=== PATIENT | male | born 1950 | race Caucasian/White ===

== ENCOUNTER 2020-01-23 12:27 | Inpatient (IN) ==
[2020-01-23] MEDS ORDERED: CeFAZolin Syr 3,000MG/30 ML 3,000 MG/30 ML SYRINGE IVPB ONE (12:48)
[2020-01-23] MEDS ORDERED: Ringers Solution, Lactated 1,000 ML IVC SCH ×2 (13:00→18:42)
[2020-01-23] MEDS ORDERED: Ethanol\\Acetic Acid\\Na Ace\\Ben 1,000 ML IRRIG.SOLN IR ONE (14:22)
[2020-01-23] MEDS ORDERED: *HR* Propofol 200 MG/20 ML VIAL IVP ONE (14:22)
[2020-01-23] MEDS ORDERED: Ondansetron 4 MG/2 ML VIAL ONE (14:22)
[2020-01-23] MEDS ORDERED: Lidocaine -MPF 2% 2 ML VIAL ONE (14:22)
[2020-01-23] MEDS ORDERED: Dexamethasone 4 MG/ML VIAL ONE (14:22)
[2020-01-23] MEDS ORDERED: *HR* FentaNYL (PF) 100 MCG/2 ML VIAL ONE ×3 (14:22→16:26)
[2020-01-23] MEDS ORDERED: Vancomycin 1,000 MG VIAL ONE (14:23)
[2020-01-23] MEDS ORDERED: *HR* Midazolam HCl 2 MG/2 ML VIAL ONE (14:29)
[2020-01-23] MEDS ORDERED: ROPIVACAINE/PF/NS 0.25% 1 EACH SYRINGE INTRAART ONE (14:43)
[2020-01-23] MEDS ORDERED: Ropivacaine/PF 0.5% 30 ML VIAL ONE ×2 (14:43→14:50)
[2020-01-23] MEDS ORDERED: *HR* Succinylcholine 200 MG/10 ML VIAL IVP ONE (14:48)
[2020-01-23] MEDS ORDERED: *HR* Metoprolol 5 MG/5 ML VIAL IVP PRN (14:53)
[2020-01-23] MEDS ORDERED: Naloxone 0.4 MG/ML INJ IVP PRN ×2 (14:53→18:42)
[2020-01-23] MEDS ORDERED: Ondansetron 4 MG/2 ML VIAL IVP PRN (14:53)
[2020-01-23] MEDS ORDERED: *HR* FentaNYL (PF) 100 MCG/2 ML VIAL IVP PRN (14:53)
[2020-01-23] MEDS ORDERED: Povidone-Iodine 45 ML, Sodium Chloride IRRigation 1,000 ML IR ONE (15:00)
[2020-01-23] MEDS ORDERED: TOTAL JOINT MIXTURE (100ML) INTRAART ONE (15:00)
[2020-01-23] MEDS ORDERED: Tranexamic Acid 1,000 MG/10 ML VIAL ONE (15:37)
[2020-01-23] MEDS ORDERED: *HR* HYDROMORPHONE 2 MG/ML VIAL ONE (15:54)
[2020-01-23] MEDS ORDERED: Ketorolac 30 MG/ML VIAL ONE (16:54)
[2020-01-23] MEDS: *HR* HYDROmorphone PF 0.5 MG/0.5 ML SYRINGE IVP PRN ×2 (17:41→17:46)
[2020-01-23 18:11] LABS: Hematocrit 39.9 % (37.5-50.1); Hemoglobin 12.5 g/dL (12.9-16.9)
[2020-01-23] MEDS ORDERED: MOM Conc 10 ML UD.LIQ PO PRN (18:42)
[2020-01-23] MEDS ORDERED: *HR* Dextrose 50 % in Water (Vial) 50 ML VIAL IVP PRN (18:42)
[2020-01-23] MEDS ORDERED: Acetaminophen IV 1,000 MG/100 ML BAG IVPB ONE (18:42)
[2020-01-23] MEDS ORDERED: Pregabalin 75 MG CAPSULE PO ONE (18:42)
[2020-01-23] MEDS ORDERED: Sennosides 8.6 MG TABLET PO PRN (18:42)
[2020-01-23] MEDS ORDERED: Dextrose Gel 15 GM/37.5 ML TUBE PO PRN ×2 (18:42)
[2020-01-23] MEDS ORDERED: D5% in Water 1,000 ML IVC PRN (18:42)
[2020-01-23] MEDS ORDERED: Famotidine 20 MG/2 ML VIAL IVP ONE (18:42)
[2020-01-23] MEDS ORDERED: *HR* Promethazine 25 MG/ML VIAL IM PRN (18:42)
[2020-01-23] MEDS: Insulin LISPRO 300 UNITS/3 ML VIAL SUBQ SCH ×2 (20:01→20:18)
[2020-01-23] MEDS: Ascorbic Acid 500 MG TABLET PO SCH (20:18)
[2020-01-24] MEDS ORDERED: ceFAZolin 3,000 MG in 0.9 % Sodium Chloride 100 ML IVPB SCH
[2020-01-24] MEDS: HYDROcodone BIT/Homatropine 5 MG TABLET PO PRN ×2 (05:55→23:44)
[2020-01-24 07:54] LABS: Basophils % 0.1 %; Hematocrit 36.7 % (37.5-50.1); Hemoglobin 11.4 g/dL (12.9-16.9); Immature Granulocytes % 0.5 % (0-4); Lymphocytes # 1.1 K/mcL (0.6-4.6); Lymphocytes % 8.1 %; Mean Corpuscular HGB Conc 31.1 g/dL (31.6-35.5); Mean Corpuscular Hemoglobin 27.2 pg (28.0-33.3); Mean Corpuscular Volume 87.6 fL (83.0-100.0); Mean Platelet Volume 9.6 fL (9.4-12.4); Monocytes # 1.5 K/mcL (0.0-1.3); Neutrophils # 10.6 K/mcL (1.6-8.9); Platelet Count 274 K/mcL (140-400); Red Blood Count 4.19 M/mcL (4.19-5.50); Red Cell Distribution Width 14.8 % (11.5-14.5); Segmented Neutrophils % 80.3 %; White Blood Count 13.2 K/mcL (4.3-11.1)
[2020-01-24 08:18] LABS: BUN/Creatinine Ratio 29 (6-26); Blood Urea Nitrogen 23 mg/dL (8-23); Calcium 8.4 mg/dL (8.6-10.3); Carbon Dioxide 20 mEq/L (23-29); Chloride 107 mEq/L (98-107); Glucose 164 mg/dL (70-105); Osmolality,Calculated 291 (280-300); Potassium 4.2 mEq/L (3.5-5.1); Sodium 137 mEq/L (136-145); eGFR For African Americans > 60 (> 60); eGFR For Non-African Americans > 60 (> 60)
[2020-01-24] MEDS: Ondansetron 4 MG/2 ML VIAL IVP PRN (09:54)
[2020-01-24] MEDS: Multivit/Ca/Min/Fe/FA 1 TAB TABLET PO SCH (09:55)
[2020-01-24] MEDS: Ascorbic Acid 500 MG TABLET PO SCH ×2 (09:55→16:53)
[2020-01-24] MEDS: Insulin LISPRO 300 UNITS/3 ML VIAL SUBQ SCH ×4 (09:56→20:15)
[2020-01-24] MEDS: *HR* OxyCODONE Immed Rel 5 MG TABLET PO PRN ×3 (10:35→21:54)
[2020-01-24] MEDS: Aspirin Enteric Coated 81 MG Tablet PO SCH (16:58)
[2020-01-25] MEDS: *HR* OxyCODONE Immed Rel 5 MG TABLET PO PRN ×4 (02:36→18:21)
[2020-01-25] MEDS: HYDROcodone BIT/Homatropine 5 MG TABLET PO PRN ×2 (09:04→16:10)
[2020-01-25] MEDS: Aspirin Enteric Coated 81 MG Tablet PO SCH (09:05)
[2020-01-25] MEDS: Ascorbic Acid 500 MG TABLET PO SCH ×2 (09:05→18:21)
[2020-01-25] MEDS: Multivit/Ca/Min/Fe/FA 1 TAB TABLET PO SCH (09:05)
[2020-01-25] MEDS: Ondansetron 4 MG/2 ML VIAL IVP PRN ×2 (09:05→22:32)
[2020-01-25] MEDS: Insulin LISPRO 300 UNITS/3 ML VIAL SUBQ SCH ×4 (09:05→20:06)
[2020-01-25 13:16] LABS: Basophils % 0.2 %; Eosinophils % 0.2 %; Hematocrit 36.4 % (37.5-50.1); Hemoglobin 11.3 g/dL (12.9-16.9); Immature Granulocytes % 0.5 % (0-4); Lymphocytes # 1.1 K/mcL (0.6-4.6); Mean Corpuscular Hemoglobin 27.3 pg (28.0-33.3); Mean Corpuscular Volume 87.9 fL (83.0-100.0); Mean Platelet Volume 9.3 fL (9.4-12.4); Monocytes # 1.4 K/mcL (0.0-1.3); Monocytes % 11.3 %; Neutrophils # 9.7 K/mcL (1.6-8.9); Platelet Count 253 K/mcL (140-400); Red Blood Count 4.14 M/mcL (4.19-5.50); Red Cell Distribution Width 15.2 % (11.5-14.5); Segmented Neutrophils % 78.8 %; White Blood Count 12.3 K/mcL (4.3-11.1)
[2020-01-25 13:36] LABS: BUN/Creatinine Ratio 20 (6-26); Blood Urea Nitrogen 21 mg/dL (8-23); Calcium 8.6 mg/dL (8.6-10.3); Carbon Dioxide 22 mEq/L (23-29); Chloride 104 mEq/L (98-107); Glucose 140 mg/dL (70-105); Osmolality,Calculated 285 (280-300); Potassium 4.1 mEq/L (3.5-5.1); Sodium 135 mEq/L (136-145); eGFR For African Americans > 60 (> 60); eGFR For Non-African Americans > 60 (> 60)
[2020-01-26] MEDS: *HR* OxyCODONE Immed Rel 5 MG TABLET PO PRN ×2 (00:38→09:27)
[2020-01-26] MEDS: Insulin LISPRO 300 UNITS/3 ML VIAL SUBQ SCH ×2 (09:23→12:34)
[2020-01-26] MEDS: Ascorbic Acid 500 MG TABLET PO SCH (09:26)
[2020-01-26] MEDS: Aspirin Enteric Coated 81 MG Tablet PO SCH (09:26)
[2020-01-26] MEDS: Multivit/Ca/Min/Fe/FA 1 TAB TABLET PO SCH (09:26)
[2020-01-26 10:10] VITALS: BP 119/73
[2020-01-26 12:24] LABS: Adenovirus Not Detected (Not Detect); Coronavirus 229E Not Detected (Not Detect); Coronavirus HKU1 Not Detected (Not Detect); Coronavirus NL63 Not Detected (Not Detect); Coronavirus OC43 Not Detected (Not Detect); Human Metapneumovirus Not Detected (Not Detect); Human Rhinovirus/Enterovirus Not Detected (Not Detect); Influenza A Subtype 2009 H1 Not Detected (Not Detect); Influenza B Not Detected (Not Detect); Parainfluenza Virus 1 Not Detected (Not Detect); SARS-CoV-2 Not Detected (Not Detect)
[2020-01-26 12:25] LABS: Bordetella Pertussis Not Detected (Not Detect); Chlamydophila pneumoniae Not Detected (Not Detect); Mycoplasma pneumoniae Not Detected (Not Detect); Parainfluenza Virus 2 Not Detected (Not Detect); Parainfluenza Virus 3 Not Detected (Not Detect); Parainfluenza Virus 4 Not Detected (Not Detect); Respiratory Syncytial Virus Not Detected (Not Detect)
[2020-01-26] MEDS: HYDROcodone BIT/Homatropine 5 MG TABLET PO PRN (12:32)
== END 2020-01-26 13:55 | DRG 462 ==
LOC: SAMDAY 12:27 → 3NENU 18:35
PROVIDERS: ADMIT Orthopaedic Surgery; ATTEND Orthopaedic Surgery

== ENCOUNTER 2020-01-31 09:24 | Inpatient (IN) ==
[2020-01-31] MEDS ORDERED: Naloxone 0.4 MG/ML INJ IVP PRN ×2 (13:08→13:41)
[2020-01-31] MEDS ORDERED: Ondansetron ODT 4 MG TAB.RAPDIS SL PRN (13:13)
[2020-01-31] MEDS ORDERED: *HR* Metoprolol 5 MG/5 ML VIAL IVP ONE ×3 (13:26→14:27)
[2020-01-31] MEDS ORDERED: 0.9 % Sodium Chloride 1,000 ML ONE (13:30)
[2020-01-31] MEDS ORDERED: Acetaminophen 325 MG TABLET PO PRN (13:41)
[2020-01-31] MEDS ORDERED: *HR* HYDROcodone/Acet 5/325 mg TABLET PO PRN (13:41)
[2020-01-31] MEDS ORDERED: Ondansetron 4 MG/2 ML VIAL IVP PRN (13:41)
[2020-01-31] MEDS ORDERED: 0.9 % Sodium Chloride 500 ML IVC ONE (14:04)
[2020-01-31] MEDS ORDERED: Perflutren Lipid Microsphere 1.3 ML in 0.9 % Sodium Chloride 8.7 ML IVP PRN (15:37)
[2020-01-31 16:23] LABS: Basophils % 0.3 %; Eosinophils # 0.1 K/mcL (0.0-0.6); Eosinophils % 0.8 %; Hematocrit 27.8 % (37.5-50.1); Immature Granulocytes % 2.2 % (0-4); Lymphocytes # 1.2 K/mcL (0.6-4.6); Lymphocytes % 9.5 %; Mean Corpuscular HGB Conc 29.9 g/dL (31.6-35.5); Mean Corpuscular Hemoglobin 25.9 pg (28.0-33.3); Mean Corpuscular Volume 86.6 fL (83.0-100.0); Mean Platelet Volume 9.3 fL (9.4-12.4); Monocytes # 0.8 K/mcL (0.0-1.3); Monocytes % 6.2 %; Nucleated Red Blood Cells 0.2 /100 WBC (0); Platelet Count 397 K/mcL (140-400); Red Blood Count 3.21 M/mcL (4.19-5.50); Red Cell Distribution Width 15.3 % (11.5-14.5); White Blood Count 12.3 K/mcL (4.3-11.1)
[2020-01-31 16:25] LABS: Hemoglobin 8.3 g/dL (12.9-16.9)
[2020-01-31 16:41] LABS: Magnesium 2.3 mg/dL (1.6-2.6); Phosphorous 3.5 mg/dL (2.7-4.5)
[2020-01-31] MEDS: *HR* Heparin 5,000 UNIT/ML VIAL SQ SCH ×2 (16:43→21:43)
[2020-01-31 16:46] LABS: BUN/Creatinine Ratio 23 (6-26); Blood Urea Nitrogen 16 mg/dL (8-23); Calcium 7.9 mg/dL (8.6-10.3); Carbon Dioxide 19 mEq/L (23-29); Chloride 107 mEq/L (98-107); Glucose 116 mg/dL (70-105); Osmolality,Calculated 286 (280-300); Potassium 3.9 mEq/L (3.5-5.1); Sodium 137 mEq/L (136-145); eGFR For African Americans > 60 (> 60); eGFR For Non-African Americans > 60 (> 60)
[2020-01-31 17:16] LABS: Troponin I 0.03 ng/mL (< 0.04)
[2020-01-31 17:30] LABS: Thyroid Stimulating Hormone 1.428 mcIU/mL (0.340-5.600)
[2020-01-31] MEDS: Lactulose Oral Soln 20 GM/30 ML UDC PO SCH (20:29)
[2020-02-01 02:08] LABS: Basophils % 0.2 %; Eosinophils # 0.2 K/mcL (0.0-0.6); Eosinophils % 1.4 %; Hematocrit 27.3 % (37.5-50.1); Hemoglobin 8.2 g/dL (12.9-16.9); Immature Granulocytes % 2.2 % (0-4); Lymphocytes # 1.3 K/mcL (0.6-4.6); Lymphocytes % 10.3 %; Mean Corpuscular Hemoglobin 25.8 pg (28.0-33.3); Mean Corpuscular Volume 85.8 fL (83.0-100.0); Mean Platelet Volume 9.4 fL (9.4-12.4); Monocytes % 7.4 %; Neutrophils # 10.2 K/mcL (1.6-8.9); Nucleated Red Blood Cells 0.7 /100 WBC (0); Platelet Count 451 K/mcL (140-400); Red Blood Count 3.18 M/mcL (4.19-5.50); Red Cell Distribution Width 15.3 % (11.5-14.5); Segmented Neutrophils % 78.5 %
[2020-02-01 02:28] LABS: BUN/Creatinine Ratio 22 (6-26); Blood Urea Nitrogen 16 mg/dL (8-23); Carbon Dioxide 18 mEq/L (23-29); Chloride 108 mEq/L (98-107); Glucose 116 mg/dL (70-105); Magnesium 2.3 mg/dL (1.6-2.6); Osmolality,Calculated 286 (280-300); Phosphorous 3.7 mg/dL (2.7-4.5); Potassium 3.8 mEq/L (3.5-5.1); Sodium 137 mEq/L (136-145); eGFR For African Americans > 60 (> 60); eGFR For Non-African Americans > 60 (> 60)
[2020-02-01] MEDS: *HR* Heparin 5,000 UNIT/ML VIAL SQ SCH ×2 (05:18→15:12)
[2020-02-01] MEDS: Aspirin Enteric Coated 81 MG Tablet PO SCH (08:16)
[2020-02-01] MEDS: Lactulose Oral Soln 20 GM/30 ML UDC PO SCH ×2 (08:17→22:22)
[2020-02-01 18:22] LABS: Bilirubin,Urine Negative (Negative); Blood,Urine Negative (Negative); Clarity,Urine Clear (Clear); Color,Urine Yellow (Yellow); Glucose,Urine (UA) Normal (Normal); Ketones,Urine Negative (Negative); Leukocyte Esterase,Urine Negative (Negative); Nitrite,Urine Negative (Negative); Protein,Urine Trace mg/dL (Neg-Trace); Urobilinogen,Urine Normal (Normal)
[2020-02-01] MEDS ORDERED: Isovue-370 500 ML BOTTLE IVP ONE (18:43)
[2020-02-01] MEDS: *HR* OxyCODONE Immed Rel 5 MG TABLET PO PRN (19:33)
[2020-02-02] MEDS: *HR* Heparin 5,000 UNIT/ML VIAL SQ SCH ×4 (00:38→21:42)
[2020-02-02] MEDS: *HR* OxyCODONE Immed Rel 5 MG TABLET PO PRN ×3 (04:53→21:41)
[2020-02-02] MEDS: Lactulose Oral Soln 20 GM/30 ML UDC PO SCH ×2 (08:11→20:05)
[2020-02-02] MEDS: Aspirin Enteric Coated 81 MG Tablet PO SCH (08:12)
[2020-02-02] MEDS ORDERED: predniSONE 20 MG TABLET PO SCH (09:00)
[2020-02-03] MEDS: *HR* OxyCODONE Immed Rel 5 MG TABLET PO PRN (04:53)
[2020-02-03] MEDS: *HR* Heparin 5,000 UNIT/ML VIAL SQ SCH (04:53)
[2020-02-03 05:13] LABS: Hematocrit 26.9 % (37.5-50.1); Hemoglobin 8.2 g/dL (12.9-16.9); Mean Corpuscular HGB Conc 30.5 g/dL (31.6-35.5); Mean Corpuscular Hemoglobin 26.7 pg (28.0-33.3); Mean Corpuscular Volume 87.6 fL (83.0-100.0); Nucleated Red Blood Cells 0.3 /100 WBC (0); Platelet Count 423 K/mcL (140-400); Red Blood Count 3.07 M/mcL (4.19-5.50); Red Cell Distribution Width 15.4 % (11.5-14.5); White Blood Count 10.5 K/mcL (4.3-11.1)
[2020-02-03 05:31] LABS: BUN/Creatinine Ratio 20 (6-26); Blood Urea Nitrogen 13 mg/dL (8-23); Calcium 7.9 mg/dL (8.6-10.3); Carbon Dioxide 23 mEq/L (23-29); Chloride 108 mEq/L (98-107); Glucose 103 mg/dL (70-105); Magnesium 2.1 mg/dL (1.6-2.6); Osmolality,Calculated 288 (280-300); Potassium 3.7 mEq/L (3.5-5.1); Sodium 139 mEq/L (136-145); eGFR For African Americans > 60 (> 60); eGFR For Non-African Americans > 60 (> 60)
[2020-02-03 06:10] LABS: Anisocytosis 1+ (Not Present); Lymphocytes # 1.1 K/mcL (0.6-4.6); Monocytes # 0.4 K/mcL (0.0-1.3); Platelet Estimate Normal (Normal)
[2020-02-03] MEDS: Lactulose Oral Soln 20 GM/30 ML UDC PO SCH (08:10)
[2020-02-03] MEDS ORDERED: Isovue-370 500 ML BOTTLE IVP ONE (08:32)
[2020-02-03 11:04] VITALS: BP 149/88
== END 2020-02-03 09:40 | disposition short-term general hospital (02) | DRG 308 ==
LOC: 2NNU → SUATTDRO 12:10 → 3NENU 02-01 11:17
PROVIDERS: ADMIT General Practice; ATTEND Internal Medicine